=== PATIENT | female | born 1990 | race Caucasian/White ===

== ENCOUNTER 2024-01-30 13:41 | Inpatient (IN) | payer OTHER, SELFPAY ==
[2024-02-02 21:51] VITALS: BMI 24.7
[2024-02-02] MEDS ORDERED: HYDROcodone/Acetaminophen 5/325 mg Tablet PO PRN ×2 (22:23)
[2024-02-02] MEDS ORDERED: Promethazine HCl 25 MG/ML VIAL IM PRN (22:23)
[2024-02-02] MEDS ORDERED: fentaNYL 50 mcg/mL 1 mL Vial SLOW IVP PRN (22:23)
[2024-02-02] MEDS ORDERED: Ibuprofen 800 MG TAB PO PRN (22:23)
[2024-02-02] MEDS ORDERED: hydrALAZINE 20 MG/ML VIAL SLOW IVP PRN (22:23)
[2024-02-02] MEDS ORDERED: Lidocaine 1% (PF) 30 ML VIAL SC PRN (22:23)
[2024-02-02 22:30] LABS: Hematocrit 34.9 % (34.9-44.5); Hemoglobin 11.5 g/dL (12.0-15.5); Mean Corpuscular Hemoglobin 25.3 pg (27.0-33.0); Mean Corpuscular Volume 76.7 fl (81.6-98.3); Mean Platelet Volume 11.6 fl (7.4-10.4); Platelet Count 220 10x3/uL (150-450); RBC Distribution Width 14.4 % (11.5-14.5); Red Blood Cell (RBC) Count 4.55 10x6/uL (3.90-5.03); White Blood Cell (WBC) Count 7.9 10x3/uL (3.5-10.5)
[2024-02-02] MEDS ORDERED: Oxytocin 30 units/NS 500 ML 500 ML IV SCH ×2 (22:30)
[2024-02-02 22:58] LABS: HBsAg Index 0.23 S/CO (0-0.99); Hep B Surf Ag - L&D Non-Reactive S/CO (NonReactive)
[2024-02-02] MEDS: Misoprostol 100 MCG TAB VAG SCH (23:36)
[2024-02-03] MEDS: Misoprostol 100 MCG TAB VAG SCH (02:52)
[2024-02-03] MEDS: Ondansetron PF 4 MG/2 ML Vial IVP PRN (08:21)
[2024-02-03] MEDS: fentaNYL/Ropivacaine Epidural 100 ML ONE (09:21)
[2024-02-03] MEDS ORDERED: Promethazine HCl 25 MG/ML VIAL IM PRN (09:41)
[2024-02-03] MEDS ORDERED: ePHEDrine Sulfate 50 MG/10 ML VIAL SLOW IVP PRN (09:41)
[2024-02-03] MEDS ORDERED: Moisturizing Cream (Eucerin) 113 GM JAR TOP PRN (09:41)
[2024-02-03] MEDS ORDERED: Lactated Ringer's 500 ML IV PRN (09:41)
[2024-02-03] MEDS ORDERED: diphenhydrAMINE 50 MG/ML VIAL IVP PRN (09:41)
[2024-02-03] MEDS ORDERED: Ondansetron PF 4 MG/2 ML Vial IVP PRN ×2 (09:41→16:59)
[2024-02-03] MEDS ORDERED: Naloxone HCl 0.4 mg/ml Vial IVP PRN ×2 (09:41)
[2024-02-03] MEDS ORDERED: Acetaminophen 325 MG TAB PO PRN (09:41)
[2024-02-03] MEDS ORDERED: fentaNYL 2 mcg/Ropivacaine 0.2% Epidural 100 ML CADD EPIDURAL SCH (09:45)
[2024-02-03] MEDS ORDERED: Communication Order-Pharmacy FS SCH (09:45)
[2024-02-03] MEDS ORDERED: Milk Of Magnesia 30 ML UDCUP PO PRN (16:59)
[2024-02-03] MEDS ORDERED: Oxytocin 30 units/NS 500 ML 500 ML IV SCH (16:59)
[2024-02-03] MEDS ORDERED: Lanolin Ointment 7 GM TUBE TOP PRN (16:59)
[2024-02-03] MEDS ORDERED: diphenhydrAMINE 25 MG CAP PO PRN (16:59)
[2024-02-03] MEDS ORDERED: hydrALAZINE 20 MG/ML VIAL SLOW IVP PRN (16:59)
[2024-02-03] MEDS ORDERED: Boostrix 0.5 ML (Tdap) VIAL (>/=7 yrs of age) IM ONE (16:59)
[2024-02-03] MEDS ORDERED: Preparation H Ointment 28 GM TUBE PR PRN (16:59)
[2024-02-03] MEDS ORDERED: HYDROcodone/Acetaminophen 5/325 mg Tablet PO PRN ×2 (16:59)
[2024-02-03] MEDS ORDERED: Bisacodyl 10 MG SUPP PR PRN (16:59)
[2024-02-03] MEDS: Ibuprofen 800 MG TAB PO SCH (18:07)
[2024-02-03] MEDS: Benzocaine-Menthol 82.5 ML CAN TOP PRN (18:08)
[2024-02-03] MEDS: Ferrous Sulfate 325 MG TAB PO SCH (18:35)
[2024-02-04] MEDS: Docusate 100 MG CAP PO SCH (01:38)
[2024-02-04 07:52] VITALS: BP 101/59; TEMP 97.9
[2024-02-04] MEDS: Prenatal Vitamin 1 TAB PO SCH (08:51)
== END 2024-02-04 15:50 | disposition home or self-care (01) | DRG 807 ==
LOC: CSHLD 02-02 20:55 → CSHPED 02-03 15:44
PROVIDERS: ADMIT Obstetrics & Gynecology; ATTEND Obstetrics & Gynecology
PROC: 10907ZC Drainage of Amniotic Fluid, Therapeutic from Products of Conception, Via Natural or Artificial Opening (ICD-10-PCS; 2024-02-02)
PROC: 10E0XZZ Delivery of Products of Conception, External Approach (ICD-10-PCS; principal; 2024-02-03)
PROC: 0HQ9XZZ Repair Perineum Skin, External Approach (ICD-10-PCS; 2024-02-03)
PROC: 3E033XZ Introduction of Vasopressor into Peripheral Vein, Percutaneous Approach (ICD-10-PCS; 2024-02-03)
DX: O76 Abnormality in fetal heart rate and rhythm complicating labor and delivery (principal); Z37.0 Single live birth; Z3A.40 40 weeks gestation of pregnancy; O70.0 First degree perineal laceration during delivery; O48.0 Post-term pregnancy
CPT/HCPCS: 36415; 85027; 86850; 86900; 86901; 87340; J2405